=== PATIENT | female | born 1970 | race Caucasian/White ===

== ENCOUNTER 2016-06-14 07:57 | Inpatient (IN) | payer OTHER ==
[2016-06-11 18:17] VITALS: Ht 167.6 cm; Wt 95.3 kg
[~2016-06-14] VITALS: Ht 167.6 cm; Wt 95.3 kg
[2016-06-14] VITALS (29 sets, daily range): BP systolic 111–168; BP diastolic 50–88; PULSE 60–100; RESP 12–20
[~2016-06-14 07:57] MED LIST: ACET-2047 PO; ALBU8.5H3; ASPI-650; BENA20TA65 PO; CARB100T2 PO; HYDR-1666; HYDR-906 PO; IBUP-1542 PO; LIRA0.6P SQ; LISI-313; METF-382; PRED50TA PO; ZOC20; [UNRECOGNIZED DRUG - CODE]
[2016-06-14] MEDS ORDERED: CEFAZOLIN 1 GM/50 ML (PMX) 50 ML IVPB SCH (09:00)
[2016-06-14] MEDS ORDERED: PROP10TA6 PO (10:49)
[2016-06-14] MEDS ORDERED: LISI10TA2 PO (10:54)
[2016-06-14] MEDS ORDERED: METF-480 PO (10:54)
[2016-06-14] MEDS ORDERED: GLIP-95 PO (10:54)
[2016-06-14] MEDS ORDERED: BUPIVACAINE 0.25% (MPF) 30 ML INJ ONE (11:49)
[2016-06-14] MEDS ORDERED: MIDAZOLAM 1 MG/ML 2 ML INJ ONE (11:54)
[2016-06-14] MEDS ORDERED: NEOSTIGMINE 3 MG/3 ML SYRINGE ONE (11:54)
[2016-06-14] MEDS ORDERED: PROPOFOL 20 ML ONE (11:54)
[2016-06-14] MEDS ORDERED: ROCURONIUM 50 MG INJ ONE ×2 (11:54→12:34)
[2016-06-14] MEDS ORDERED: METOCLOPRAMIDE 10 MG INJ ONE (11:54)
[2016-06-14] MEDS ORDERED: CEFAZOLIN 1 GM INJ ONE (12:07)
[2016-06-14] MEDS ORDERED: HYDROmorphONE 2 MG/ML SYG ONE (12:14)
[2016-06-14] MEDS ORDERED: METOCLOPRAMIDE 10 MG INJ IV PRN (14:00)
[2016-06-14] MEDS ORDERED: HYDROmorphONE (0.2 MG/ML) 10ML SYG IV PRN ×3 (14:00)
[2016-06-14] MEDS ORDERED: ONDANSETRON 4 MG INJ IV PRN (14:00)
[2016-06-14] MEDS ORDERED: DIPHENHYDRAMINE 50 MG INJ IV PRN (14:00)
[2016-06-14] MEDS ORDERED: MEPERIDINE 25 MG INJ IV PRN (14:00)
--- NOTE | 2016-06-14 14:56 | OPR ---
DATE OF OPERATION: 06/14/2016 INDICATION: This is a 46-year-old female with a thyroid goiter, which causes pressure symptoms and difficulty swallowing. She also has a thyroid nodule, which has been shown to be benign with some f ollicular cells. She requests total thyroidectomy due to pressure symptoms. Risks, alternatives, b enefits, and personnel were discussed with the patient. Potential complications including but not l imited to bleeding, infection, recurrent laryngeal nerve injury, possible need for tracheostomy were discussed with the patient. Additionally, voice changes were discussed. The patient expressed und erstanding and consents to the operation. PREOPERATIVE DIAGNOSIS: Thyroid goiter and pressure symptoms. POSTOPERATIVE DIAGNOSIS: Thyroid goiter and pressure symptoms. OPERATION: Total thyroidectomy. SURGEON: Katy Mojica MD SPECIMEN: Total thyroid with surgical markings a single short right superior, double short right in ferior, single long left superior, and double long left inferior. COMPLICATIONS: None. ANESTHESIA: General. PROCEDURE: The patient was taken to the OR and prepped draped in usual sterile fashion. Surgical t imeout was performed. IV antibiotics were given. Collar incision was made with a 15 blade. Dissec tion cautery was carried down to the platysma and down to the strap muscles. The strap muscles were split in the midline. The strap muscles were retracted. The middle thyroidal veins were ligated w ith handheld LigaSure on both sides. Left lobe was addressed. The superior and inferior poles were mobilized. Attention was paid to the recurrent laryngeal nerve and inferior artery, which we re kept out of harm's way, and the thyroid was mobilized. The isthmus was also mobilized. The righ t thyroid was addressed in a similar fashion with the superior and inferior lobes mobilized. Attent ion was paid to the recurrent laryngeal nerve, the inferolateral artery and kept out of the field of dissection. The right lobe was medialized, and the specimen was taken off en bloc with surgical ma rkings of single short right superior, double short right inferior, single left superior, double shaina g left inferior. There is good hemostasis. Valsalva maneuver up to 40 cm of water was performed. No evidence of bleeding. Strap muscles were reapproximated with interrupted 3-0 Vicryl. Platysma w as reapproximated with interrupted 3-0 Vicryl. Skin was closed with interrupted 3-0 Vicryl and runn ing 4-0 Monocryl. Local anesthesia was injected. Dry dressings were applied. Dictated By: KATY LOWRY/ARANZA Conf#: [id number] DID#: [id number]
[2016-06-14 15:18] LABS: ADD SCAN DIFF NO
[2016-06-14 15:24] LABS: BASOPHIL # 0.1 10^3/ul (0.0-0.1); BASOPHILS % 0.5 % (0.0-2.0); EOSINOPHILS # 0.4 10^3/ul (0.0-0.5); EOSINOPHILS % 4.2 % (0.0-7.0); HEMATOCRIT 33.6 % (37.0-47.0); HEMOGLOBIN 11.2 g/dl (12.0-16.0); LYMPHOCYTES # 3.6 10^3/ul (0.8-2.9); LYMPHOCYTES % 38.2 % (15.0-51.0); MEAN CORPUSCULAR HEMOGLOBIN 30.7 pg (29.0-33.0); MEAN CORPUSCULAR HGB CONC 33.3 g/dl (32.0-37.0); MEAN CORPUSCULAR VOLUME 92.1 fl (82.0-101.0); MEAN PLATELET VOLUME 10.1 fl (7.4-10.4); MONOCYTE # 0.7 10^3/ul (0.3-0.9); MONOCYTES % 7.1 % (0.0-11.0); NEUTROPHIL # 4.5 10^3/ul (1.6-7.5); NEUTROPHILS % 47.4 % (39.0-77.0); PLATELET COUNT 256 10^3/UL (140-415); RED BLOOD COUNT 3.65 10^6/ul (4.20-5.40); RED CELL DISTRIBUTION WIDTH 13.1 % (11.5-14.5); WHITE BLOOD COUNT 9.5 10^3/ul (4.8-10.8)
[2016-06-14 15:34] LABS: ALBUMIN 3.4 g/dl (3.3-4.9)
[2016-06-14 15:35] LABS: POTASSIUM 3.9 mmol/L (3.5-5.1)
[2016-06-14 15:37] LABS: ALBUMIN/GLOBULIN RATIO 1.13; BILIRUBIN,INDIRECT 0.1 mg/dl (0-1.1); BILIRUBIN,TOTAL 0.1 mg/dl (0.2-1.3); CREATININE 0.45 mg/dl (0.44-1.00); TOTAL PROTEIN 6.4 g/dl (6.1-8.1)
[2016-06-14 15:38] LABS: CALCIUM 8.4 mg/dl (8.4-10.2)
[2016-06-14] MEDS: LACTATED RINGER'S 1,000 ML IV SCH ×2 (16:25→22:58)
[2016-06-14] MEDS: morphine 2 MG INJ IV PRN ×2 (16:25→18:22)
[2016-06-14] MEDS: CEFAZOLIN 2 GM/50 ML (PMX) 50 ML IVPB SCH ×2 (17:00→20:51)
[2016-06-14] MEDS: SOD CHLORIDE 0.9% 1,000 ML IV SCH ×2 (17:00→21:02)
[2016-06-14] MEDS: INSULIN ASPART [NOVOLOG] 3 ML PEN SC SCH ×2 (17:55→20:07)
[2016-06-14] MEDS ORDERED: HYDROCODONE/APAP (5/325) TAB PO PRN (18:00)
[2016-06-14] MEDS ORDERED: GLUCOSE GEL 15 GRAM TUBE BUCCAL PRN (18:30)
[2016-06-14] MEDS ORDERED: DEXTROSE 50% 50 ML SYRINGE IV PRN ×2 (18:30)
[2016-06-14] MEDS ORDERED: GLUCOSE GEL 15 GRAM TUBE PO PRN ×2 (18:30)
[2016-06-14] MEDS ORDERED: GLUCAGON 1 MG INJ IM PRN (18:30)
[2016-06-14] MEDS ORDERED: morphine 4 MG/ML VIAL IV STA (19:50)
[2016-06-14] MEDS ORDERED: hydrALAzine 20 MG INJ IV PRN (20:00)
[2016-06-14] MEDS ORDERED: morphine 4 MG/ML VIAL IV PRN (20:00)
[2016-06-14] MEDS ORDERED: CARBAMAZEPINE 200 MG TAB PO SCH (21:00)
[2016-06-14] MEDS ORDERED: CARBAMAZEPINE 200 MG TAB PO ONE (22:00)
[2016-06-14] MEDS: HYDROCODONE/APAP (5/325) TAB PO PRN (22:59)
--- NOTE | 2016-06-14 23:08 | HP ---
DATE OF ADMISSION: 06/14/2016 CHIEF COMPLAINT AND HISTORY OF PRESENT ILLNESS: The patient is a 46-year-old female with history of large thyroid nodule causing compressive symptoms and was seen by Dr. Mojica as an outpatient. The anson mejia had fine-needle aspiration biopsy which was benign. Due to pressure symptoms, patient was bro ught into hospital today and underwent total thyroidectomy. The patient has significant postoperati ve pain for which the patient is getting IV morphine. The patient denied any chest pain. The patie nt is able to speak. Denies headache. No reported abdominal pain. No reported vomiting. No repor t of any weakness in any extremity. The patient has chronic back pain and is status post multiple b ack surgeries including L4-L5, L5-S1 decompression and fusion with posterior instrumentation by ____ back in 2009. PAST MEDICAL HISTORY: Also significant for bilateral 5th hammertoe surgery by Dr. Nicholas Butterfield. The patient also has history of diabetes and hypertension and seizure disorder. ALLERGIES: NONE. SOCIAL HISTORY: No smoking, no alcohol. PHYSICAL EXAMINATION: GENERAL: The patient is conscious, awake, alert. VITAL SIGNS: The patient is afebrile, pulse 75, respirations 18, blood pressure 139/57, O2 saturati on 94% on room air. HEENT: Conjunctivae and lids normal. Extraocular movements intact. Nose, ears normal. Oropharynx examination was deferred due to recent surgery on the neck. NECK: The patient is status post total thyroidectomy. Dressing intact. No acute bleeding. CHEST: Fairly clear. CARDIOVASCULAR: S1, S2 normal. No murmur. ABDOMEN: Soft, nondistended, nontender. EXTREMITIES: No leg edema. NEUROLOGIC: The patient is awake, alert, fairly oriented with no gross focal deficit. LABORATORY DATA: WBC 9.5, hemoglobin 9.2, platelet 256. Chemistry: Sodium 143, potassium 3.9, BUN 11, creatinine 0.4, alkaline phosphatase 126. AST, ALT within normal limits. IMPRESSION: 1. Symptomatic goiter, status post total thyroidectomy. 2. Diabetes mellitus. 3. Hypertension. 4. Seizure disorder. 5. Dyslipidemia. PLAN: The patient will be admitted on medical floor. The patient will be started on clear liquid d iet which will be advanced as tolerated. The patient will be continued on Tegretol, lisinopril, met formin and will put patient on sliding scale insulin. Will use SCD for DVT prophylaxis. Will dean nue supportive care. Will follow up calcium level. Continue IV fluid. Further recommendations zaira l depend on patient's hospital course. Dictated By: ROMAN BABCOCK/ARANZA Conf#: [id number] DID#: [id number]
[2016-06-15] MEDS: ACCUCHECK XX SCH (02:00)
[2016-06-15 04:54] LABS: ADD SCAN DIFF NO
[2016-06-15] MEDS: HYDROCODONE/APAP (5/325) TAB PO PRN ×3 (04:59→18:31)
[2016-06-15] MEDS: CEFAZOLIN 2 GM/50 ML (PMX) 50 ML IVPB SCH (04:59)
[2016-06-15 05:09] LABS: BASOPHIL # 0.1 10^3/ul (0.0-0.1); BASOPHILS % 0.4 % (0.0-2.0); EOSINOPHILS # 0.2 10^3/ul (0.0-0.5); EOSINOPHILS % 1.5 % (0.0-7.0); HEMATOCRIT 35.1 % (37.0-47.0); HEMOGLOBIN 11.5 g/dl (12.0-16.0); LYMPHOCYTES # 2.9 10^3/ul (0.8-2.9); MEAN CORPUSCULAR HEMOGLOBIN 30.2 pg (29.0-33.0); MEAN CORPUSCULAR HGB CONC 32.8 g/dl (32.0-37.0); MEAN CORPUSCULAR VOLUME 92.1 fl (82.0-101.0); MEAN PLATELET VOLUME 9.8 fl (7.4-10.4); MONOCYTE # 0.9 10^3/ul (0.3-0.9); NEUTROPHIL # 7.6 10^3/ul (1.6-7.5); NEUTROPHILS % 64.8 % (39.0-77.0); PLATELET COUNT 261 10^3/UL (140-415); RED BLOOD COUNT 3.81 10^6/ul (4.20-5.40); RED CELL DISTRIBUTION WIDTH 13.4 % (11.5-14.5); WHITE BLOOD COUNT 11.7 10^3/ul (4.8-10.8)
[2016-06-15 05:20] VITALS: BP 105/55; PULSE 75; RESP 18
[2016-06-15 05:36] LABS: ALBUMIN 3.7 g/dl (3.3-4.9)
[2016-06-15 05:37] LABS: POTASSIUM 3.6 mmol/L (3.5-5.1)
[2016-06-15 05:39] LABS: BILIRUBIN,INDIRECT 0.2 mg/dl (0-1.1); BILIRUBIN,TOTAL 0.2 mg/dl (0.2-1.3); CREATININE 0.42 mg/dl (0.44-1.00)
[2016-06-15 05:40] LABS: ALBUMIN/GLOBULIN RATIO 1.08; CALCIUM 8.7 mg/dl (8.4-10.2); TOTAL PROTEIN 7.1 g/dl (6.1-8.1)
[2016-06-15] MEDS ORDERED: ONDANSETRON 4 MG INJ IV PRN (07:00)
[2016-06-15 08:13] VITALS: BP 129/72; RESP 16
[2016-06-15] MEDS: LISINOPRIL 5 MG TAB PO SCH (08:29)
[2016-06-15] MEDS: metFORMIN 850 MG TAB PO SCH ×2 (08:30→17:33)
[2016-06-15] MEDS: CARBAMAZEPINE 200 MG TAB PO SCH (08:30)
[2016-06-15] MEDS: INSULIN ASPART [NOVOLOG] 3 ML PEN SC SCH ×4 (08:33→20:07)
[2016-06-15] MEDS: LACTATED RINGER'S 1,000 ML IV SCH ×2 (08:34→19:42)
--- NOTE | 2016-06-15 09:59 | PN ---
Date/Time of Note Date/Time of Note DATE: 06/15/16 TIME: 09:58 Assessment/Plan VTE Prophylaxis VTE Prophylaxis Intervention: SCD's Lines/Catheters IV [facility] Peripheral IV Urinary Cath still in place: No Assessment/Plan Chief Complaint/Hosp Course s/p total thyroidectomy Problems: Assessment/Plan dc home Subjective 24 Hr Interval Summary Free Text/Dictation doing well, no issues Exam/Review of Systems Vital Signs Vitals Vital Signs Date Time Temp Pulse Resp B/P Pulse Ox O2 Delivery O2 Flow Rate FiO2 06/15/16 08:13 97.9 78 16 129/72 94 06/15/16 05:20 Room Air 06/14/16 23:17 2.0 Intake and Output 06/14/16 06/14/16 06/15/16 15:00 23:00 07:00 Intake Total 1400 ml 370 ml 2200 ml Output Total 10 ml 700 ml 1300 ml Balance 1390 ml -330 ml 900 ml Exam dry dressings intact Results Result Diagram: 06/15/16 0430 06/15/16 0430 Results 24 hrs Laboratory Tests Test 06/14/16 14:30 06/14/16 17:52 06/14/16 20:05 06/15/16 02:25 Alanine Aminotransferase (ALT/SGPT) 38 Albumin 3.4 Albumin/Globulin Ratio 1.13 Alkaline Phosphatase 126 H Anion Gap 14 Aspartate Amino Transf (AST/SGOT) 43 Basophils # 0.1 Basophils % 0.5 Blood Urea Nitrogen 11 Calcium Level 8.4 Carbon Dioxide Level 27 Chloride Level 106 Creatinine 0.45 Direct Bilirubin 0.00 Eosinophils # 0.4 Eosinophils % 4.2 Globulin 3.00 Glucose Level 163 Hematocrit 33.6 L Hemoglobin 11.2 L Indirect Bilirubin 0.1 Lymphocytes # 3.6 H Lymphocytes % 38.2 Mean Corpuscular Hemoglobin 30.7 Mean Corpuscular Hemoglobin Concent 33.3 Mean Corpuscular Volume 92.1 Mean Platelet Volume 10.1 Monocytes # 0.7 Monocytes % 7.1 Neutrophils # 4.5 Neutrophils % 47.4 Nucleated Red Blood Cells # 0.0 Nucleated Red Blood Cells % 0.0 Platelet Count 256 Potassium Level 3.9 Red Blood Count 3.65 L Red Cell Distribution Width 13.1 Sodium Level 143 Total Bilirubin 0.1 L Total Protein 6.4 White Blood Count 9.5 Bedside Glucose 168 182 144 Test 06/15/16 04:30 06/15/16 08:21 Alanine Aminotransferase (ALT/SGPT) 41 Albumin 3.7 Albumin/Globulin Ratio 1.08 Alkaline Phosphatase 115 Anion Gap 15 Aspartate Amino Transf (AST/SGOT) 40 Basophils # 0.1 Basophils % 0.4 Blood Urea Nitrogen 8 Calcium Level 8.7 Carbon Dioxide Level 30 Chloride Level 99 Creatinine 0.42 L Direct Bilirubin 0.00 Eosinophils # 0.2 Eosinophils % 1.5 Globulin 3.40 H Glucose Level 154 Hematocrit 35.1 L Hemoglobin 11.5 L Indirect Bilirubin 0.2 Lymphocytes # 2.9 Lymphocytes % 25.0 Mean Corpuscular Hemoglobin 30.2 Mean Corpuscular Hemoglobin Concent 32.8 Mean Corpuscular Volume 92.1 Mean Platelet Volume 9.8 Monocytes # 0.9 Monocytes % 8.0 Neutrophils # 7.6 H Neutrophils % 64.8 Nucleated Red Blood Cells # 0.0 Nucleated Red Blood Cells % 0.0 Platelet Count 261 Potassium Level 3.6 Red Blood Count 3.81 L Red Cell Distribution Width 13.4 Sodium Level 140 Total Bilirubin 0.2 Total Protein 7.1 White Blood Count 11.7 #H Bedside Glucose 169 Medications Medications Current Medications Sodium Chloride 1,000 ml @ 75 mls/hr [id number] IV ; Start 06/14/16 at 09:00 Cefazolin Sodium/ Dextrose (Ancef 2 Gm/50 ml (Pmx)) 50 ml @ 100 mls/hr Q8H IVPB Last administered on 06/15/16 04:59; Admin Dose 100 MLS/HR; Start 06/14/16 at 14:00; Stop 06/15/16 at 13:59 Acetaminophen/ Hydrocodone Bitart 1 tab 1 tab Q6H PRN PO PAIN LEVEL 6-10 Last administered on 06/15/16 04:59; Admin Dose 1 TAB; Start 06/14/16 at 14:00 Lactated Ringer's (Lr) 1,000 ml @ 100 mls/hr Q10H IV Last administered on 22:58; Admin Dose 100 MLS/HR; Start 06/14/16 at 13:42 Diagnostic Test (Pha) (Accucheck) 1 ea 02 XX ; Start 06/15/16 at 02:00 Miscellaneous Information 1 ea NOTE XX ; Start 06/14/16 at 18:30 Glucose (Glutose) 15 gm Q15M PRN PO DECREASED GLUCOSE; Start 06/14/16 at 18:30 Glucose (Glutose) 22.5 gm Q15M PRN PO DECREASED GLUCOSE; Start 06/14/16 at 18:30 Dextrose (D50w Syringe) 25 ml Q15M PRN IV DECREASED GLUCOSE; Start 06/14/16 at 18:30 Dextrose (D50w Syringe) 50 ml Q15M PRN IV DECREASED GLUCOSE; Start 06/14/16 at 18:30 Glucagon (Glucagen) 1 mg Q15M PRN IM DECREASED GLUCOSE; Start 06/14/16 at 18:30 Glucose (Glutose) 15 gm Q15M PRN BUCCAL DECREASED GLUCOSE; Start 06/14/16 at 18: 30 Acetaminophen/ Hydrocodone Bitart ([place] (5/325)) 1 tab Q6H PRN PO PAIN; Start 06/14/16 at 18:00 Lisinopril (Zestril) 5 mg QAM PO Last administered on 06/15/16 08:29; Admin Dose 5 MG; Start 06/15/16 at 09:00 Morphine Sulfate (morphine) 3 mg Q2 PRN IV PAIN Last administered on 06/15/16 02:24; Admin Dose 3 MG; Start 06/14/16 at 20:00 Hydralazine HCl (Apresoline) 10 mg Q4H PRN IV ELEVATED BP Last administered on 06/14/16 20:52; Admin Dose 10 MG; Start 06/14/16 at 20:00 Carbamazepine (Tegretol) 200 mg DAILY PO Last administered on 06/15/16 08:30; Admin Dose 200 MG; Start 06/15/16 at 09:00 Carbamazepine (Tegretol) 400 mg HS PO ; Start 06/15/16 at 21:00 Ondansetron HCl (Zofran Inj) 4 mg Q4H PRN IV NAUSEA AND/OR VOMITING Last administered on 06/15/16 06:51; Admin Dose 4 MG; Start 06/15/16 at 07:00 Nguyen PONCE Jun 15, 2016 09:59
[2016-06-15] MEDS: SOD CHLORIDE 0.9% 1,000 ML IV SCH (11:40)
[2016-06-15] MEDS ORDERED: HYDROCODONE/APAP (5/325) TAB PO PRN (16:00)
--- NOTE | 2016-06-15 18:46 | PN ---
Date/Time of Note Date/Time of Note DATE: 06/15/16 TIME: 18:41 Assessment/Plan VTE Prophylaxis VTE Prophylaxis Intervention: SCD's Lines/Catheters IV Catheter Type (from Nrsg): Peripheral IV Urinary Cath still in place: No Assessment/Plan Assessment/Plan 1. Symptomatic goiter, status post total thyroidectomy. Continue [place] and morphine for pain. Advance diet as patient tolerates. Monitor calcium level. 2. Diabetes mellitus. Continue metformin and NovoLog per moderate algorithm sliding scale 3. Hypertension. Continue lisinopril 4. Seizure disorder. Continue Tegretol. 5. Dyslipidemia. 6. Obesity. Further recommendations based on clinical course. Plan of care discussed with Dr. Goldsmith. Subjective 24 Hr Interval Summary Free Text/Dictation Patient complaints of pain and difficulty swallowing, advance diet as patient tolerates, continue pain management Exam/Review of Systems Vital Signs Vitals Vital Signs Date Time Temp Pulse Resp B/P Pulse Ox O2 Delivery O2 Flow Rate FiO2 06/15/16 08:13 97.9 78 16 129/72 94 06/15/16 05:20 Room Air 06/14/16 23:17 2.0 Intake and Output 06/14/16 06/14/16 06/15/16 15:00 23:00 07:00 Intake Total 1400 ml 370 ml 2200 ml Output Total 10 ml 700 ml 1300 ml Balance 1390 ml -330 ml 900 ml Exam Constitutional: alert, oriented Psych: no complaints Head: normocephalic Eyes: nl conjunctiva ENMT: other Neck: non-tender, other (Dry clean and intact dressing at the base of the neck , status post total thyroidectomy), supple Respiratory: clear to auscultation, normal air movement Cardiovascular: nl pulses Gastrointestinal: nl liver, spleen, soft Musculoskeletal: nl extremities to inspection Extremities: normal pulses Neurological: CABLE MAINTAINER II-XII intact Results Result Diagram: 06/15/16 04306/15/16 043 Results 24 hrs Laboratory Tests Test 06/14/16 20:05 06/15/16 02:25 06/15/16 04:30 06/15/16 08:21 Bedside Glucose 182 144 169 Alanine Aminotransferase (ALT/SGPT) 41 Albumin 3.7 Albumin/Globulin Ratio 1.08 Alkaline Phosphatase 115 Anion Gap 15 Aspartate Amino Transf (AST/SGOT) 40 Basophils # 0.1 Basophils % 0.4 Blood Urea Nitrogen 8 Calcium Level 8.7 Carbon Dioxide Level 30 Chloride Level 99 Creatinine 0.42 L Direct Bilirubin 0.00 Eosinophils # 0.2 Eosinophils % 1.5 Globulin 3.40 H Glucose Level 154 Hematocrit 35.1 L Hemoglobin 11.5 L Indirect Bilirubin 0.2 Lymphocytes # 2.9 Lymphocytes % 25.0 Mean Corpuscular Hemoglobin 30.2 Mean Corpuscular Hemoglobin Concent 32.8 Mean Corpuscular Volume 92.1 Mean Platelet Volume 9.8 Monocytes # 0.9 Monocytes % 8.0 Neutrophils # 7.6 H Neutrophils % 64.8 Nucleated Red Blood Cells # 0.0 Nucleated Red Blood Cells % 0.0 Platelet Count 261 Potassium Level 3.6 Red Blood Count 3.81 L Red Cell Distribution Width 13.4 Sodium Level 140 Total Bilirubin 0.2 Total Protein 7.1 White Blood Count 11.7 #H Test 06/15/16 12:31 06/15/16 17:34 Bedside Glucose 183 286 H Medications Medications Current Medications Sodium Chloride (NS) 1,000 ml @ 75 mls/hr [id number] IV ; Start 06/14/16 at 09:00 Acetaminophen/ Hydrocodone Bitart 1 tab 1 tab Q6H PRN PO PAIN LEVEL 6-10 Last administered on 06/15/16 12:00; Admin Dose 1 TAB; Start 06/14/16 at 14:00 Lactated Ringer's (Lr) 1,000 ml @ 100 mls/hr Q10H IV Last administered on 22:58; Admin Dose 100 MLS/HR; Start 06/14/16 at 13:42 Diagnostic Test (Pha) (Accucheck) 1 ea 02 XX ; Start 06/15/16 at 02:00 Miscellaneous Information 1 ea NOTE XX ; Start 06/14/16 at 18:30 Glucose (Glutose) 15 gm Q15M PRN PO DECREASED GLUCOSE; Start 06/14/16 at 18:30 Glucose (Glutose) 22.5 gm Q15M PRN PO DECREASED GLUCOSE; Start 06/14/16 at 18:30 Dextrose (D50w Syringe) 25 ml Q15M PRN IV DECREASED GLUCOSE; Start 06/14/16 at 18:30 Dextrose (D50w Syringe) 50 ml Q15M PRN IV DECREASED GLUCOSE; Start 06/14/16 at 18:30 Glucagon (Glucagen) 1 mg Q15M PRN IM DECREASED GLUCOSE; Start 06/14/16 at 18:30 Glucose (Glutose) 15 gm Q15M PRN BUCCAL DECREASED GLUCOSE; Start 06/14/16 at 18: 30 Lisinopril (Zestril) 5 mg QAM PO Last administered on 06/15/16 08:29; Admin Dose 5 MG; Start 06/15/16 at 09:00 Morphine Sulfate (morphine) 3 mg Q2 PRN IV PAIN Last administered on 06/15/16 02:24; Admin Dose 3 MG; Start 06/14/16 at 20:00 Hydralazine HCl (Apresoline) 10 mg Q4H PRN IV ELEVATED BP Last administered on 06/14/16 20:52; Admin Dose 10 MG; Start 06/14/16 at 20:00 Carbamazepine (Tegretol) 200 mg DAILY PO Last administered on 06/15/16 08:30; Admin Dose 200 MG; Start 06/15/16 at 09:00 Carbamazepine (Tegretol) 400 mg HS PO ; Start 06/15/16 at 21:00 Ondansetron HCl (Zofran Inj) 4 mg Q4H PRN IV NAUSEA AND/OR VOMITING Last administered on 06/15/16 06:51; Admin Dose 4 MG; Start 06/15/16 at 07:00 Acetaminophen/ Hydrocodone Bitart ([place] (5/325)) 1 tab Q4H PRN PO PAIN LEVEL 4 -6; Start 06/15/16 at 16:00 Acetaminophen/ Hydrocodone Bitart ([place] (5/325)) 2 tab Q4H PRN PO PAIN LEVEL 7 -10 Last administered on 06/15/16 18:31; Admin Dose 2 TAB; Start 06/15/16 at 16: 00 SEBASTIÁN AQUINO Jun 15, 2016 18:46
[2016-06-15 19:35] LABS: ADD SCAN DIFF NO
[2016-06-15 19:36] LABS: BASOPHILS % 0.4 % (0.0-2.0); EOSINOPHILS # 0.3 10^3/ul (0.0-0.5); EOSINOPHILS % 3.3 % (0.0-7.0); HEMATOCRIT 36.6 % (37.0-47.0); HEMOGLOBIN 12.2 g/dl (12.0-16.0); LYMPHOCYTES # 3.5 10^3/ul (0.8-2.9); LYMPHOCYTES % 34.8 % (15.0-51.0); MEAN CORPUSCULAR HEMOGLOBIN 30.7 pg (29.0-33.0); MEAN CORPUSCULAR HGB CONC 33.3 g/dl (32.0-37.0); MEAN PLATELET VOLUME 9.5 fl (7.4-10.4); MONOCYTE # 0.9 10^3/ul (0.3-0.9); MONOCYTES % 8.6 % (0.0-11.0); NEUTROPHIL # 5.3 10^3/ul (1.6-7.5); NEUTROPHILS % 52.4 % (39.0-77.0); PLATELET COUNT 288 10^3/UL (140-415); RED BLOOD COUNT 3.98 10^6/ul (4.20-5.40); RED CELL DISTRIBUTION WIDTH 13.2 % (11.5-14.5)
[2016-06-15 19:46] LABS: CREATININE 0.54 mg/dl (0.44-1.00)
[2016-06-15 19:47] LABS: CALCIUM 9.3 mg/dl (8.4-10.2)
[2016-06-15 20:03] VITALS: BP 121/64; RESP 18
[2016-06-15] MEDS ORDERED: CARBAMAZEPINE 200 MG TAB PO SCH (21:00)
[2016-06-16] MEDS: SOD CHLORIDE 0.9% 1,000 ML IV SCH ×2 (01:00→14:20)
[2016-06-16] MEDS: ACCUCHECK XX SCH (02:00)
[2016-06-16] MEDS: LACTATED RINGER'S 1,000 ML IV SCH ×2 (02:03→15:01)
[2016-06-16] MEDS: HYDROCODONE/APAP (5/325) TAB PO PRN ×4 (04:38→18:15)
[2016-06-16 07:00] VITALS: BP 132/74; RESP 16
[2016-06-16] MEDS: CARBAMAZEPINE 200 MG TAB PO SCH (08:14)
[2016-06-16] MEDS: metFORMIN 850 MG TAB PO SCH ×2 (08:14→18:13)
[2016-06-16] MEDS: LISINOPRIL 5 MG TAB PO SCH (08:15)
[2016-06-16] MEDS: INSULIN ASPART [NOVOLOG] 3 ML PEN SC SCH ×3 (08:18→17:55)
[2016-06-16] MEDS ORDERED: HYDR-906 PO (16:36)
== END 2016-06-16 18:50 | disposition home or self-care (01) | DRG 627 ==
LOC: REC 07:57 → EDSTATUS 11:30 → MS1 15:37
PROVIDERS: ADMIT Internal Medicine; ATTEND Surgery
PROC: 0GTH0ZZ Resection of Right Thyroid Gland Lobe, Open Approach (ICD-10-PCS; principal; 2016-06-14 11:00)
DX: E04.1 Nontoxic single thyroid nodule (principal); I10 Essential (primary) hypertension; E11.9 Type 2 diabetes mellitus without complications; E78.5 Hyperlipidemia, unspecified; G40.909 Epilepsy, unspecified, not intractable, without status epilepticus; E66.9 Obesity, unspecified; Z68.33 Body mass index [BMI] 33.0-33.9, adult; Z79.4 Long term (current) use of insulin
CPT/HCPCS: 80048; 80053; 82310; 82962; 84703; 85025; 88307; J0360; J0690; J1170; J1815; J2175; J2250; J2270; J2405; J2710; J2765; J7030; J7120